=== PATIENT | male | born 1970 | race Caucasian/White ===

== ENCOUNTER → 2023-12-27 09:16 | Outpatient (REF) | payer BC, SELFPAY ==
--- NOTE | 2023-12-27 10:13 | CARDSERVLU ---
Echocardiogram with Lumason completed after protocol screening completed. Allergies verified.
Patent IV site: _Right antecubital 22 g PC ,site clear____
IV site flushed with 0.9% NaCl pre and post administration.
Diluted bolus method utilized to enhance visualization of ventricular coronado.
Total volume given: _2 tolerated_procedures well without complications.
Heplock D/C ed at 1010, site clear, no redness, no edema. Pressure held, no bleeding. 2x2 applied and taped. Pt offers no complaints.
== END ==
LOC: RCS 09:16
PROVIDERS: ATTENDING PHYSICIAN Internal Medicine Cardiovascular Disease; FAMILY PHYSICIAN Family Medicine
DX: I50.22 Chronic systolic (congestive) heart failure (principal); I42.9 Cardiomyopathy, unspecified; I48.0 Paroxysmal atrial fibrillation; R09.89 Other specified symptoms and signs involving the circulatory and respiratory systems
CPT/HCPCS: 93307; 93880; Q9957

== ENCOUNTER 2024-01-10 07:20 | Day surgery (SDC) | payer BC, SELFPAY ==
[2024-01-10] VITALS (16 sets, daily range): BP systolic 103–132; BP diastolic 74–94; BMI 31.0
[2024-01-10 08:04] LABS: Hematocrit 43.1 % (39.0-52.0); Hemoglobin 15.3 g/dL (13.0-18.0); Mean Corp Hgb Conc. 35.5 g/dL (33.0-37.0); Mean Corpuscular Hgb 31.4 pg (27.0-31.0); Mean Corpuscular Volume 88.3 fL (80.0-94.0); Mean Platelet Volume 9.9 fL (7.4-10.4); Platelet Count 175 10^3/uL (130-400); Red Blood Cell Count 4.88 10^6/uL (4.70-6.10); Red Cell Dist. Width 12.7 % (11.5-14.5); White Blood Cell Count 5.6 10^3/uL (4.8-10.8)
[2024-01-10 08:30] LABS: Blood Urea Nitrogen 21 mg/dl (9-20); Calcium 9.2 mg/dl (8.4-10.2); Carbon Dioxide 30 mmol/L (22-30); Chloride 104 mmol/L (98-107); Estimated Creatinine Clearance 73 ml/min; Glucose 108 mg/dl (70-99); Sodium 137 mmol/L (135-145); eGFR > 60.00
[2024-01-10] MEDS: VANCOCIN 300 ML IV (08:52)
[2024-01-10] MEDS: VANCOCIN 300 MG IV (08:52)
--- NOTE | 2024-01-10 09:58 | W.ICD.CONTRA ---
Post ICD/LANDFILL GRADER-D
-
History of AL?: No
LV Function
Left ventricular function study result?: Ejection Fraction </= 35%
ACEI/ARB/ARNI
Patient already on ACEI/ARB/ARNI: Yes
Beta-Angel
Patient already on Beta Angel: Yes
--- NOTE | 2024-01-10 11:39 | ITS.CL.ICD ---
Rn Interventional - ICD
Implantable Cardioverter Defibrillator
Procedure Report:
ICD IMPLANTATION REPORT
Date of Procedure: January 10, 2024
Primary Care Provider: Dr. Jet Todd
hot plate press operator: Sergio Damian M.D.
Primary padded products inspector trimmer: Dr. Petra Damian M.D.
PROCEDURES:
Implantation of multichamber ICD and ICD lead
Removal of COMBAT CONTROL pacemaker
INDICATION FOR PROCEDURE:
CHF Class II
Duration of HF > 90 days despite guideline directed medical therapy at maximally tolerated doses
HISTORY: Please refer to office history and physical exam
Dilated cardiomyopathy (possibly related to distant Adriamycin and XRT right shoulder). He is experienced declining left ventricular systolic function as well as episodes of ventricular tachycardia.
Given LVEF now less than 35% despite guideline directed medical therapy for greater than 1 year, he is indicated for attempted upgrade of COMBAT CONTROL pacemaker to COMBAT CONTROL defibrillator.
After informed consent was obtained, a 'time out' was called and confirmed. The patient was prepped and draped in a sterile fashion.
A venography was performed via the left antecubital venous access. This demonstrated patent central venous system.
Lidocaine with epi was used for local anesthesia.
An incision was made over his previous incision and with careful dissection and electrocautery for hemostasis, the COMBAT CONTROL pacemaker and leads were dissected from the pocket.
Central venous access was obtained via axillary venipuncture. Using a Seldinger technique and peel-away sheaths, the pacing leads were placed under fluoroscopic guidance. Note, there is a fair amount of scar tissue at the entry site which
required dilatation using increasing Czech size dilators and use of multiple wires to obtain access. Ultimately a long sheath could be placed and through this the ventricular lead was placed. Once testing (see below) showed adequate and stable
function, the leads were secured using the suture sleeves. The pocket was liberally irrigated with antibiotic solution. The leads were connected to the generator header and the leads and generator were placed within the pocket. Fluoroscopy
confirmed stable lead position. The pocket was closed in the typical fashion.
Antibiotic pouch was used
FLUOROSCOPY:
Fluoroscopy was used to guide lead placement.
REMOVED:
Medtronic [id number] , SN: [id number], Left Pectoral
RETAINED:
RA Medtronic 5076, SN: [id number], RAA
RV Medtronic 5076, SN: [id number], RV apical septum
LV Medtronic [id number], [id number]
IMPLANTS:
ICD Medtronic [id number], SN RTC [id number] , Left Pectoral
RV Medtronic 6935M, SN TDL [id number]
DEVICE TESTING:
Sensing: RA 3.8, RV n/a
Capture: RA 0.5 V @ 0.4 ms, RV 0.75 V @ 0.4ms, LV 1.75 V@ 0.4ms
Ohms: RA 343 8, RV 475 , LV 836
FINAL PROGRAMMING:
Timothy Pacing: DDD 50�130
Tachy parameters:
VF: 188 bpm, ATP X 1, Shock
COMPLICATIONS:
None
CONCLUSIONS:
Implantation of multichamber ICD and ICD lead
Removal of COMBAT CONTROL pacemaker
RECOMMENDATIONS:
1. Telemetry monitoring, CXR
2. Office wound check in 5-7 days.
Copy: Dr. Petra Damian M.D.
[2024-01-10] MEDS: TYLENOL 650 MG PO (15:41)
--- NOTE | 2024-01-10 16:31 | CM ---
spoke to pt in room, he is prev indep, lives with his in a 2 story home with 2 steps to enter. he denies any dme's or dc planning needs. plan is for dc to home when medically stable.
--- NOTE | 2024-01-10 20:00 | PTCARENOTE ---
Assumed care. Patient in the chair. Left arm immobilizer intact and dressing CDI. Precautions reviewed, V-paced on telemetry
[2024-01-10] MEDS: COREG 25 MG PO (20:48)
[2024-01-10] MEDS: ENTRESTO 24 MG/26 MG 1 TAB PO (20:48)
[2024-01-11 04:50] VITALS: BP 123/82
[2024-01-11 05:56] LABS: Blood Urea Nitrogen 21 mg/dl (9-20); Calcium 9.1 mg/dl (8.4-10.2); Carbon Dioxide 29 mmol/L (22-30); Chloride 100 mmol/L (98-107); Estimated Creatinine Clearance 93 ml/min; Glucose 104 mg/dl (70-99); Magnesium 2.4 mg/dl (1.6-2.3); Potassium 4.4 mmol/L (3.5-5.1); Sodium 135 mmol/L (135-145); eGFR > 60.00
[2024-01-11 07:27] VITALS: BP 134/86
[2024-01-11] MEDS: COREG 25 MG PO (07:37)
[2024-01-11] MEDS: ENTRESTO 24 MG/26 MG 1 TAB PO (07:37)
[2024-01-11 08:15] LABS: Hematocrit 42.9 % (39.0-52.0); Hemoglobin 14.7 g/dL (13.0-18.0); Mean Corp Hgb Conc. 34.3 g/dL (33.0-37.0); Mean Corpuscular Hgb 31.1 pg (27.0-31.0); Mean Corpuscular Volume 90.9 fL (80.0-94.0); Mean Platelet Volume 10.4 fL (7.4-10.4); Platelet Count 164 10^3/uL (130-400); Red Blood Cell Count 4.72 10^6/uL (4.70-6.10); White Blood Cell Count 7.2 10^3/uL (4.8-10.8)
--- NOTE | 2024-01-11 09:48 | W.PN.CARDCBS ---
Addendum entered and electronically signed by Davin Martinez MD 01/11/24 18:19:
patient seen and examined
agree with FLORIST'S DECORATOR note and assessment
agree with FLORIST'S DECORATOR plan
exam:
heent ncat
jvp 6
cor regular-paced
lungs ctab
abd soft nt nd
no ext edema
aao x3
non focal neurologically
IMPRESSION:
Dilated NICM
Chronic systolic HFrEF, 30-35%
NSVT
S/P Bi-V ICD upgrade, 01/10/24
Prior Bi-V PPM implant (10/2021)
RA lead revision (11/2021) and RV lead revision (12/2021)
Right shoulder synovial cancer, s/p XRT/chemo w/adriamycin/surgery (2003)
Paroxysmal AF
PLAN:
Tele- Vpaced w/underlying SR, 60s, 7bt run NSVT w/occasional PVCs
Device site stable
Activity limitations reviewed as well as no driving for 1 week
Will wear sling for 48 hours post d/t prior issues with retaining lead placement post implant
CXR w/stable lead position, no pneumothorax
Resume Xarelto tonight at usual time
Lasix held d/t elevated creat 1.4- now down to 1.1 this morning- will resume at home today
Continue entresto, carvediolol as before
incision check next week at [facility] and follow with Dr. Lambert there after
home today
Original Note:
Today's Communication / Plan
-
home today
Impression / Plan
-
PCP: Jet Todd MD
CDY: Petra Damian MD
53 y/o, PMH sig for chemo related dilated NICM as well as some heart block. Initial Bi-V PPM implanted 10/2021 with subsequent atrial lead revision in 11/2021 and RV lead revision in 12/2021. Now presents with progressive cardiomyopathy, echo 12/2023
with global HK and EF 30-35%, as well as episodes of NSVT. He is on max swetha GDMT. s/p Bi-V ICD upgrade with new RV lead.
IMPRESSION:
Dilated NICM
Chronic systolic HFrEF, 30-35%
NSVT
S/P Bi-V ICD upgrade, 01/10/24
Prior Bi-V PPM implant (10/2021)
RA lead revision (11/2021) and RV lead revision (12/2021)
Right shoulder synovial cancer, s/p XRT/chemo w/adriamycin/surgery (2003)
Paroxysmal AF
PLAN:
Tele- Vpaced w/underlying SR, 60s, 7bt run NSVT w/occasional PVCs
Device site stable
Activity limitations reviewed as well as no driving for 1 week
Will wear sling for 48 hours post d/t prior issues with retaining lead placement post implant
CXR w/stable lead position, no pneumothorax
Resume Xarelto tonight at usual time
Lasix held d/t elevated creat 1.4- now down to 1.1 this morning- will resume at home today
Continue entresto, carvediolol as before
incision check next week at [facility] and follow with Dr. Lambert there after
home today
Progress Note - Tip Bander
Subjective
Date of Service: January 11, 2024
Denies cp/palps/dyspnea
device site without pain
oob ambulating
Objective
Labs:
01/11/24 05:02
01/11/24 05:02
Labs
Hgb 14.7 g/dL (13.0-18.0) 01/11/24 05:02
Hct 42.9 % (39.0-52.0) 01/11/24 05:02
Plt Count 164 10^3/uL (130-400) 01/11/24 05:02
Sodium 135 mmol/L (135-145) 01/11/24 05:02
Potassium 4.4 mmol/L (3.5-5.1) 01/11/24 05:02
BUN 21 mg/dl (9-20) H 01/11/24 05:02
Creatinine 1.1 mg/dL (0.7-1.3) 01/11/24 05:02
Glucose 104 mg/dl (70-99) H 01/11/24 05:02
Vital Signs and I&O:
Vital Signs
Temp Pulse Resp BP Pulse Ox
97.3 F 72 16 134/86 98
01/11/24 07:27 01/11/24 07:27 01/11/24 07:27 01/11/24 07:27 01/11/24 08:00
Vital Signs
Temp Pulse Resp BP Pulse Ox
97.3 F 72 16 134/86 98
01/11/24 07:27 01/11/24 07:27 01/11/24 07:27 01/11/24 07:27 01/11/24 08:00
Intake & Output
01/09/24 01/10/24 01/11/24 01/12/24
06:59 06:59 06:59 06:59
Intake Total 480 / 480
Output Total 2 / 2
Balance 478 / 478
Physical Exam
Physical Exam
AAOx3, MAEE 5/5
RRR S1 S2 no murmurs
CTA bilat, non labored
soft abd, + bs
left ACW aquacel dressing CDI, no ht/bleeding, non tender
bilat extremities w/palpable distal pulses, no edema
--- NOTE | 2024-01-11 10:00 | PTCARENOTE ---
Pt received with no c/o of any pain or discomfort. Left chest incision with pressure dressing intact which was later removed by nurse practioner. Pt discharged to home with his . Discharge instructions given and reviewed with good understanding.
--- NOTE | 2024-01-11 10:58 | W.DS.TRANS ---
DC Summary - Milieu Coordinator
-
Discharge Instructions:
Sleep Apnea Risk Low
Discharge Diagnosis/Procedures Bi-V ICD upgrade
Diet Low Cholesterol,Low Sodium
Driving Restrictions No driving for 1 week
Bathing Restrictions OK to Shower
Instructions:
Stand-Alone Forms: DC Inst - Implanted Device
Changes to Home Medications: No
Discharge Medications:
DC Medications w/original date entered in ePrep
furosemide 40 mg tablet 40 mg PO DAILY #90 tabs 08/03/18
ascorbic acid (vitamin C) 1,000 mg tablet (Vitamin C) 1,000 mg PO DAILY 12/02/21
cholecalciferol (vitamin D3) 50 mcg (2,000 unit) tablet 50 mcg PO QPM ##0 12/02/21
carvedilol 25 mg tablet 25 mg PO BID 01/10/24
furosemide 40 mg tablet 20 mg PO QPM 01/10/24
rivaroxaban 20 mg tablet (Xarelto) 20 mg PO QPM 01/10/24
sacubitril 24 mg-valsartan 26 mg tablet (Entresto) 1 tab PO BID 01/10/24
Home Medication Changes
Pending Results: No
== END 2024-01-11 09:40 | disposition home or self-care (01) ==
LOC: CATH 07:20
PROVIDERS: Nurse Practitioner; ATTENDING PHYSICIAN Internal Medicine Cardiovascular Disease
DX: I50.22 Chronic systolic (congestive) heart failure (principal); I48.0 Paroxysmal atrial fibrillation; I47.20 Ventricular tachycardia, unspecified; Z95.0 Presence of cardiac pacemaker; I42.0 Dilated cardiomyopathy; Z79.01 Long term (current) use of anticoagulants
CPT/HCPCS: 33249; 33233; 71045; 80048; 83735; 85027; 93005; C1769; C1777; C1882; C1892; C1894

== ENCOUNTER → 2025-01-02 08:20 | Outpatient (REF) | payer BC, SELFPAY | LOC: RCS 08:20 | PROVIDERS: ATTENDING PHYSICIAN Internal Medicine Cardiovascular Disease | DX: I50.22 Chronic systolic (congestive) heart failure (principal) | CPT/HCPCS: 93306; Q9950 ==